=== PATIENT | male | born 1975 | race Caucasian/White ===

== ENCOUNTER → 2022-09-20 | Outpatient (CLI) | payer SELFPAY | LOC: M OUTALCOH 08:07 | PROVIDERS: ATTEND Psychiatry & Neurology Psychiatry | DX: Z03.89 Encounter for observation for other suspected diseases and conditions ruled out (principal) ==

== ENCOUNTER → 2022-11-07 | Outpatient (RCR) | payer SELFPAY | LOC: M OUTALCOH 10-17 08:50 | PROVIDERS: ATTEND Psychiatry & Neurology Psychiatry | DX: F10.20 Alcohol dependence, uncomplicated (principal) ==

== ENCOUNTER → 2022-12-13 | Outpatient (CLI) | payer SELFPAY | LOC: M PLALAB 15:49 | PROVIDERS: ATTEND Psychiatry & Neurology Psychiatry | DX: F10.20 Alcohol dependence, uncomplicated (principal) ==

== ENCOUNTER 2023-01-01 15:30 | Outpatient (RCR) | payer SELFPAY | END 2023-01-07 | LOC: M OUTALCOH 15:30 | PROVIDERS: ATTEND Psychiatry & Neurology Psychiatry | DX: F10.20 Alcohol dependence, uncomplicated (principal) ==

== ENCOUNTER 2023-03-06 10:51 | Outpatient (RCR) | payer SELFPAY | END 2023-03-09 | LOC: M OUTALCOH 10:51 | PROVIDERS: ATTEND Psychiatry & Neurology Psychiatry | DX: F10.20 Alcohol dependence, uncomplicated (principal) ==

== ENCOUNTER 2023-04-07 15:55 | Outpatient (RCR) | payer SELFPAY | END 2023-04-09 | LOC: M OUTALCOH 15:55 | PROVIDERS: ATTEND Psychiatry & Neurology Psychiatry | DX: F10.20 Alcohol dependence, uncomplicated (principal) ==

== ENCOUNTER 2023-05-07 10:39 | Outpatient (RCR) | payer SELFPAY | END 2023-05-08 | LOC: M OUTALCOH 10:39 | PROVIDERS: ATTEND Psychiatry & Neurology Psychiatry | DX: F10.20 Alcohol dependence, uncomplicated (principal) ==

== ENCOUNTER 2023-06-04 14:59 | Outpatient (RCR) | payer SELFPAY | END 2023-06-08 | LOC: M OUTALCOH 14:59 | PROVIDERS: ATTEND Psychiatry & Neurology Psychiatry | DX: F10.20 Alcohol dependence, uncomplicated (principal) ==

== ENCOUNTER 2023-07-02 15:54 | Outpatient (RCR) | payer SELFPAY | END 2023-07-08 | LOC: M OUTALCOH 15:54 | PROVIDERS: ATTEND Psychiatry & Neurology Psychiatry | DX: F10.20 Alcohol dependence, uncomplicated (principal) ==

== ENCOUNTER 2023-07-16 11:35 | Outpatient (RCR) | payer SELFPAY | END 2023-08-08 | LOC: M OUTALCOH 11:35 | PROVIDERS: ATTEND Psychiatry & Neurology Psychiatry | DX: F10.20 Alcohol dependence, uncomplicated (principal) ==